=== PATIENT | female | born 1970 | race Hispanic/Latino ===

== ENCOUNTER → 2020-12-03 | Outpatient (CLI) | payer BC | END | disposition home or self-care (01) | LOC: RAH 11:22 | PROVIDERS: ATTEND Specialist | DX: Z12.31 Encounter for screening mammogram for malignant neoplasm of breast (principal); N63.14 Unspecified lump in the right breast, lower inner quadrant | CPT/HCPCS: 77067 ==

== ENCOUNTER → 2021-01-19 | Outpatient (CLI) | payer BC | END | disposition home or self-care (01) | LOC: RAH 14:00 | PROVIDERS: ATTEND Specialist | DX: N63.10 Unspecified lump in the right breast, unspecified quadrant (principal) | CPT/HCPCS: 76641 ==

== ENCOUNTER → 2021-11-28 | Outpatient (CLI) | payer OTHER | END | disposition home or self-care (01) | LOC: RAH 11:37 | PROVIDERS: ATTEND Family Medicine | DX: Z13.6 Encounter for screening for cardiovascular disorders (principal) | CPT/HCPCS: 75571 ==

== ENCOUNTER → 2022-02-27 | Outpatient (CLI) | payer BC | END | disposition home or self-care (01) | LOC: RAH 15:47 | PROVIDERS: ATTEND Specialist | DX: Z12.31 Encounter for screening mammogram for malignant neoplasm of breast (principal) | CPT/HCPCS: 77067 ==

== ENCOUNTER → 2023-03-01 | Outpatient (CLI) | payer BC | END | disposition home or self-care (01) | LOC: RAH 07:49 | PROVIDERS: ATTEND Nurse Practitioner Family | DX: Z12.31 Encounter for screening mammogram for malignant neoplasm of breast (principal) | CPT/HCPCS: 77067 ==

== ENCOUNTER → 2024-03-05 | Outpatient (CLI) | payer BC | END | disposition home or self-care (01) | LOC: RAH 11:51 | PROVIDERS: ATTEND Nurse Practitioner Family | DX: Z12.31 Encounter for screening mammogram for malignant neoplasm of breast (principal); R92.323 Mammographic fibroglandular density, bilateral breasts | CPT/HCPCS: 77067 ==

== ENCOUNTER → 2025-04-26 | Outpatient (CLI) | payer BC | END | disposition home or self-care (01) | LOC: RAH 14:41 | PROVIDERS: ATTEND Nurse Practitioner Family | DX: Z12.31 Encounter for screening mammogram for malignant neoplasm of breast (principal) | CPT/HCPCS: 77067 ==